=== PATIENT | female | born 1960 ===

== ENCOUNTER → 2016-05-31 | Outpatient (CLI) | payer OTHER ==
[~2016-05-31] MED LIST: ACYC200C66 PO; AMBI5TAB PO; DULO1CAP3 PO; HYDR-3580 PO; HYDR7.5T76 PO
== END ==
LOC: PHPRE 13:41
PROVIDERS: ATTEND Obstetrics & Gynecology
DX: N85.00 Endometrial hyperplasia, unspecified (principal); R10.2 Pelvic and perineal pain

== ENCOUNTER → 2016-06-02 | Day surgery (SDC) | payer OTHER ==
[~2016-06-02] VITALS: Ht 162.6 cm; Wt 83.0 kg
[~2016-06-02] MED LIST changes: +FAMOTIDINE 20 MG/2 ML VIAL ONE; +KETOROLAC TROMETHAMINE 30 MG/ML (IVP) VIAL ONE; +LACTATED RINGER'S 1000 ML INJ 1,000 ML ONE; +MIDAZOLAM HCL 2 MG/2 ML VIAL ONE; +SODIUM CHLORIDE 0.9% INJ 50 ML ONE; +ceFAZolin INJ 1,000 MG VIAL ONE; +ePHEDrine/NS 25 MG/5 ML SYR IV ONE
[2016-06-02 06:56] VITALS: BP 139/73; PULSE 67; RESP 18; TEMP 98.3; O2SAT 99
[2016-06-02 08:30] VITALS: PULSE 63
[2016-06-02 09:05] VITALS: TEMP 98
[2016-06-02 09:35] VITALS: BP 135/60; PULSE 74; RESP 16; O2SAT 100
--- NOTE | 2016-06-02 19:44 | EKG ---
Date Performed: 06/02/2016 Time Performed: 06:54:38 PTAGE: 56 years EKG: Sinus rhythm . Normal ECG NO PREVIOUS TRACING DOCTOR: Olga Waldrop Interpretating Date/Time 06/02/2016 19:42:54
--- NOTE | 2016-08-11 10:47 | PD.OP ---
. Operative Report Date of Surgery: Jun 02, 2016 Preoperative Diagnosis: (1) Endometrial hyperplasia, unspecified (2) Cervical stenosis (uterine cervix) (3) Pelvic pain Postoperative Diagnosis: (1) Endometrial polyp (2) Endometrial hyperplasia, unspecified (3) Cervical stenosis (uterine cervix) (4) Pelvic pain Procedure: hysteroscopy and dilation and curettage Anesthesia: general by LMA Surgeon: Marline Bryant Manager Biostatistics(s): Hunter Operation and Findings: Indications: This patient was found to have endometrial thickening on imaging done for pelvic pain. She refused office biopsy due to a stenotic cervix and anticipated pain. Findings: Patient was found on hysteroscopic view to have polypoid endometrium and an endometrial polyp, confirmed to be removed by repeat hysteroscopy post dilation and curettage. Procedure: Patient was brought to the OR and laid supine on the table. After inducing general anesthesia she was positioned in low stirrups in dorso- lithotomy position. An open-sided speculum was placed in the vagina after Betadine prep and time out. The anterior lip of the cervix was grasped with a single tooth tenaculum, and the cervix was dilated to accept a standard rigid hysteroscope. After viewing and taking pictures, the polyp was extracted with polyps forceps. The endometrium was the thoroughly sampled using a medium sharp curet. Moderate tissue returned. A second hysteroscopic view confirmed that all the findings described above were included in the specimen. The procedure being complete, the instruments were removed, the patient was replaced supine and she was awakened. She was transferred to the PACU breathing on her own in stable condition. Sponge, needle and instrument counts were correct. Marline Bryant MD August 11, 2016 10:47
== END | disposition home or self-care (01) ==
LOC: PHSDC 06:17
PROVIDERS: ATTEND Obstetrics & Gynecology
DX: N84.0 Polyp of corpus uteri (principal); N88.2 Stricture and stenosis of cervix uteri; R10.2 Pelvic and perineal pain; Z01.810 Encounter for preprocedural cardiovascular examination
CPT/HCPCS: 00952; 58558; 88305; 93005; J0690; J1885; J2250; J3010; J7120